=== PATIENT | male | born 1950 | race Two or more races ===

== ENCOUNTER 2025-02-24 05:36 | Inpatient (IN) | payer OTHER, MEDICARE ==
[~2025-02-24] VITALS: Ht 182.9 cm; Wt 112.7 kg
[2025-02-24] VITALS (7 sets, daily range): BP systolic 130–145; BP diastolic 63–73; PULSE 69–87; RESP 16–20; TEMP 97.4–98.1; O2SAT 93–97
--- NOTE | 2025-02-24 06:42 | ED.PDOC ---
GI ASSESSMENT HPI Comments 74 year old male presents to the ED via EMS with a chief complaint of rectal bleeding onset today (02/24/25). Per EMS, patient woke up this morning, went to the restroom, noticed blood in the toilet, went to lay down. Patient began experiencing abdominal pain, called 911. Upon EMS arrival, patient was pale, BS 172, VSS. Patient had a second bowel movement with EMS present, EMS noticed blood with no stool, shortly after patient experienced syncopal episode followed by an episode of nausea/vomiting. He was given Zofran 8 mg IV as well as IVF in route to ED. PMHx HTN, Parkinson's disease, Gout, blood clots. Denies chest pain, shortness of breath, dizziness, headache, diarrhea, dysuria, hematuria, fever, chills. No other symptoms or modifying factors present at this time. Chief Complaint: GI Bleed Time Seen by MD: 06:15 Reviewed Notes: Medications, Allergies Allergies: Coded Allergies: NO KNOWN ALLERGIES (Unverified , 02/24/25) Information Source: Patient, Emergency Med Personnel Mode of Arrival: EMS Timing: Hours Duration: Since onset Prehospital treatment: IVF, Other (Zofran 8 mg IV) Quality: Sharp Stool: Blood Streaked Severity: Moderate Recent: None Recent Hx of: None Pain Location: Diffuse Modifying Factors: Nothing Associated sign and symptoms: Nausea, Vomiting, Abdominal Pain, Blood in Stool, Other (syncope) Past Medical History PAST MEDICAL HISTORY: Gout, HTN Past Medical History (Other): parkinson's disease, blood clots bilateral legs Surgical History: Denies all surgeries Family History Family History: Reviewed,noncontributory to illness, No family hx of Cancer, No family hx of DM, No family hx of Heart janelle, No family hx of HTN, No family hx ofKidney janelle, No family hx of Liver janelle, No family hx of Lung janelle, No family hx of Stroke Social History Smoker: Non-Smoker Alcohol: Occasionally Drugs: Denies Drug Use Lives In: Home Constitutional: denies: chills, diaphoresis, fatigue, fever, malaise, sweats, weakness, others EENTM: denies: blurred vision, double vision, ear bleeding, ear discharge, ear drainage, ear pain, ear ringing, eye pain, eye redness, hearing loss, mouth pain, mouth swelling, nasal discharge, nose bleeding, nose congestion, nose pain, photophobia, tearing, throat pain, throat swelling, voice changes, others Respiratory: denies: cough, hemoptysis, orthopnea, SOB at rest, shortness of breath, SOB with excertion, stridor, wheezing, others Cardiovascular: denies: chest pain, dizzy spells, diaphoresis, Dyspnea on exer tion, edema, irregular heart beat, left arm pain, lightheadedness, palpitations, PND, syncope, others Gastrointestinal: reports: abdominal pain, nausea, rectal bleeding, vomiting; denies: abdomen distended, blood streaked bowels, constipated, diarrhea, dysphagia, difficulty swallowing, hematemesis, melena, poor appetite, poor fluid intake, rectal pain, others Genitourinary: denies: burning, dysuria, flank pain, frequency, hematuria, incontinence, penile discharge, penile sore, pain, testicle pain, testicle swelling, urgency, others Neurological: reports: others (syncope); denies: dizziness, fainting, headache, left sided numbness, left sided weakness, numbness, paresthesia, pre-existing deficit, right sided numbness, right sided weakness, seizure, speech problems, tingling, tremors, weakness Musculoskeletal: denies: back pain, gout, joint pain, joint swelling, muscle pain, muscle stiffness, neck pain, others Integumetry: denies: bruises, change in color, change in hair/nails, dryness, laceration, lesions, lumps, rash, wounds, others Allergic/Immunocompromised: denies: Difficulty Healing, Frequent Infections, Hives, Itching, others Hematologic/Lymphatic: denies: anemia, blood clots, easy bleeding, easy bruising, swollen glands, others Endocrine: denies: excessive hunger, excessive sweating, excessive thirst, excessive urination, flushing, intolerance to cold, intolerance to heat, unexplained weight gain, unexplained weight loss, others Psychiatric: denies: anxiety, bipolar disorder, depression, hopeless, panic disorder, schizophrenia, sleepless, suicidal, others All Other Systems: Reviewed and Negative Physical Exam General Appearance: No Apparent Distress, Normal HEENT: Normal ENT Inspection, Pharynx Normal, TMs Normal Neck: Full Range of Motion, Non-Tender, Normal, Normal Inspection Respiratory: Chest Non-Tender, Lungs Clear, No Accessory Muscle Use, No Respiratory Distress, Normal Breath Sounds Cardiovascular: No Edema, No JVD, No Murmur, No Gallop, Normal Peripheral Pulses, Regular Rate/Rhythm Breast Exam: Deferred Gastrointestinal: No Organomegaly, Non Tender, No Pulsatile Mass, Normal Bowel Sounds, Soft Genitalia: Deferred Pelvic: Deferred Rectal: Deferred Extremities: No calf tenderness, Normal capillary refill, Normal inspection, Normal range of motion, Non-tender, No pedal edema Musculoskeletal : Apperance: Normal Neurologic: Alert, chemical equipment repairer II-XII nml as Tested, No Motor Deficits, Normal Affect, Normal Mood, No Sensory Deficits Cerebellar Function: Normal Reflexes: Normal Skin: Dry, Normal Color, Warm Lymphatic: No Adenopathy Was a procedure done? Was a procedure done?: No GI differential Dx Differential Diagnosis: AAA, Aortic dissection, Bowel Obstruction, Diverticular disease, Esophagitis, Gastritis/PUD, Gastroenteritis, GI hemorrhage, Inflamm atory BD, Ischemic Bowel, Bacterial, Parasitic, Viral, Hypovolemia, Ischemic Bowel, Stress Ulcer, Other (anemia) X-Ray, Labs, Meds, VS Vital Signs Date Time Temp Pulse Resp B/P (MAP) Pulse Ox O2 Delivery O2 Flow Rate FiO2 02/24/25 08:00 97.8 77 16 133/62 (85) 93 97.8 02/24/25 08:00 77 16 93 Room Air* 0 21 02/24/25 06:48 98.1 73 20 139/54 (82) 97 98.1 02/24/25 06:48 69 20 97 Room Air* 0 21 02/24/25 05:39 74 02/24/25 05:36 97.9 72 16 104/60 (75) 96 97.9 Lab Test 02/24/25 09:50 02/24/25 09:49 02/24/25 07:48 02/24/25 06:30 Range/Units Stool Occult Blood Sample #3 Pending Lactic Acid Level Pending Troponin I High Sensitivity 6 6 </=54 ng/L White Blood Count 17.6 H 4.4-10.8 10^3/uL Red Blood Count 5.29 4.5-5.90 10^6/uL Hemoglobin 15.6 13.5-17.5 g/dL Hematocrit 47.6 41.0-53.0 % Mean Corpuscular Volume 90.1 80.0-100.0 fL Mean Corpuscular Hemoglobin 29.5 28.0-32.0 pg Mean Corpuscular Hemoglobin Concent 32.7 32.0-36.0 g/dL Red Cell Distribution Width 17.2 H 11.8-14.3 % Platelet Count 259 140-450 10^3/uL Mean Platelet Volume 8.8 6.9-10.8 fL Neutrophils (%) (Auto) 86.6 H 37.0-80.0 % Lymphocytes (%) (Auto) 6.8 L 10.0-50.0 % Monocytes (%) (Auto) 6.0 0.0-12.0 % Eosinophils (%) (Auto) 0.2 0.0-7.0 % Basophils (%) (Auto) 0.4 0.0-2.0 % Neutrophils # (Auto) 15.2 H 1.6-8.6 10 ^3/uL Lymphocytes # (Auto) 1.2 0.4-5.4 10 ^3/uL Monocytes # (Auto) 1.1 0-1.3 10 ^3/uL Eosinophils # (Auto) 0 0-0.8 10 ^3/uL Basophils # (Auto) 0.1 0-0.2 10 ^3/uL Nucleated Red Blood Cells 0.3 % Prothrombin Time 23.2 H 9.3-11.8 sec Prothrombin Time INR 2.39 H 0.9-1.15 Activated Partial Thromboplast Time 37.7 H 24.5-34.5 SEC Sodium Level 138 136-145 mmol/L Potassium Level 5.5 H 3.5-5.1 mmol/L Chloride Level 108 H 98-107 mmol/L Carbon Dioxide Level 21 20-31 mmol/L Anion Gap 9 5-15 Blood Urea Nitrogen 23 9-23 mg/dL Creatinine 1.64 H 0.700-1.30 mg/dL Glomerular Filtration Rate Calc 43 >90 mL/min BUN/Creatinine Ratio 14.0 10.0-20.0 Serum Glucose 173 H 74-106 mg/dL Hemoglobin A1c Pending Calcium Level 9.2 8.7-10.4 mg/dL Total Bilirubin 0.8 0.2-1.0 mg/dL Aspartate Amino Transferase (AST) 97 H 13-40 U/L Alanine Aminotransferase (ALT) 45 H 7-40 U/L Alkaline Phosphatase 96 46-116 U/L Total Protein 7.6 5.7-8.2 g/dL Albumin 4.2 3.2-4.8 g/dL Triglycerides Level Pending Cholesterol Level Pending LDL Cholesterol Pending HDL Cholesterol Pending Vitamin D 25-Hydroxy 50.3 30.0-100 ng/mL Folic Acid 9.08 >5.38 ng/mL Thyroid Stimulating Hormone (TSH) 3.68 0.55-4.78 uIU/mL [place] [id number] Ph: [phone] DIAGNOSTIC IMAGING Diagnostic Imaging Report : [id number] Signed PATIENT: EMIR BENDERACCT: [id number] UNIT: [id number] : 1950 LOC: ER ROOM / BED: / AGE / SEX: 74 / M ADM STATUS: REG ER SERVICE 8 ORDERING PHYSICIAN: LOULOU ADAMES MD PROCEDURE(s): ABPL - CT AB PEL WO CON-NO ORAL OR IV REASON: gib ORDER NUMBER(s): [id number], ACCESSION NUMBER(s): [id number] Exam: CT CT AB PEL WO CON-NO ORAL OR IV History: gib Comparison Study: None Technique: Multidetector spiral CT of the abdomen and pelvis was performed from lung bases to pubic symphysis. Imaging was performed without intravenous contrast. Coronal and sagittal multiplanar reformats were obtained from the axial data set by the technologist. Radiation Dose : 1. Abdomen/Pelvis: CTDIvol 24.9 mGy, DLP 1362.2 mGy*cm. Findings: Evaluation of vasculature and solid organs is limited due to lack of intravenous contrast use. Lung Bases: Right lower lobe atelectasis. Visualized portions of the heart and pericardium are unremarkable. Liver: The liver is enlarged measuring 21.4 cm in length. No focal lesions. Diffusely hypoattenuating liver parenchyma consistent with hepatic steatosis. Gallbladder and Biliary Tree: Gallstones. No intrahepatic or extrahepatic biliary ductal dilatation. Spleen: Unremarkable Pancreas: The pancreas is grossly unremarkable. Adrenal Glands: Unremarkable Kidneys: No intrarenal calculi or hydronephrosis. 10 mm right cortical renal cyst. GI tract: The stomach is grossly normal in appearance. Abnormal small bowel wall thickening of jejunal loops in the left hemiabdomen, with engorgement of the mesenteric vascular. No bowel obstruction. Colonic diverticulosis without acute diverticulitis. Normal appendix. Peritoneum/mesentery/retroperitoneum. No evidence of free intraperitoneal air. No free fluid in the abdomen or pelvis. Lymph nodes: No evidence of suspicious lymphadenopathy. Abdominal Wall: Unremarkable. Vasculature: The visualized abdominal aorta is normal in size and caliber. Evaluation of abdominal and pelvic vessels is limited due to lack of intravenous contrast. Urinary Bladder: Grossly unremarkable for degree of distention. Pelvic Organs: Unremarkable Musculoskeletal: No acute fracture or dislocation. Old left inferior pubic ramus fracture. Old right inferior pubic ramus fracture. Right hip prosthesis. Soft tissues: Bilateral fat containing inguinal hernias. IMPRESSION: 1. Abnormal small bowel wall thickening with engorgement of the mesenteric vasculature suggestive of severe enteritis. This may be infectious, inflammatory or vascular in etiology. No bowel obstruction. No free fluid in the abdomen or pelvis. 2. Gallstones. 3. Hepatomegaly and hepatic steatosis. 4. Colonic diverticulosis without acute diverticulitis. ATED BY: ANABELLE GREENFIELD MD DICTATED DATE/TIME: 02/24/25704 SIGNED BY: ANABELLE GREENFIELD MD SIGNED DATE/TIME: 02/24/25704 CC: Time of 1ST Reevaluation: 06:45 Reevaluation 1ST: Unchanged Patient Education/Counseling: Diagnosis, Treatment, Prognosis, Need For Follow Up Family Education/Counseling: Diagnosis, Treatment, Prognosis, Need For Follow Up, No Family Present Additional Information The following tests were ordered, and results were reviewed by me: EKG -x3, PTPTT, TYPE AND SCREEN, BNP, CBC, CMP, LA W/ REFLEX, UA, TROP -x3, CT AB PEL WO CON Additional Information was gathered from interviewing the following independent historians: EMS I reviewed and agreed with the following test results read by other providers: C T AB PEL WO CON I discussed treatment and results with medical personnel and: patient Comprehensive systems review obtained and negative except for what is stated in the HPI. pt reports that he is also on steroid and NSAID for his gout. pt may have gas tritis in addition to diverticulosis and enteritis as the source of bleed. pt has leukocytosis, but no signs of diverticulitis nor any source of infection, other the the enteritis. i will withhold antibiotic for now, as the leukocytosis may be secondary to demargination and should be monitored. pt also had 2 episodes of GIB with one episode of syncope, witnessed by EMT. pt is currently not considered stable and will need to be admitted for further evaluation and treatments. i communicated with [place] and obtained approval to admit pt here. [facility], transfer center coordinator agree with admitting pt here Sepsis Sepsis Reasesment Focused Exam Orders: Laboratory Tests 02/24/25 09:49: Departure 1 Departure Time of Disposition: 08:54 Impression: Primary Impression: GI bleed Qualified Codes: K92.2 - Gastrointestinal hemorrhage, unspecified Additional Impressions: Diverticulosis Enteritis Bleeding on Coumadin Syncope Qualified Codes: R55 - Syncope and collapse Disposition: ADMITTED INPATIENT Admit to: Tele Condition: Serious Discharged With: Self, Relative Critical Care Note Critical Care Time?: Yes (55 min-critical care time only) Critical care comment: Due to concerns for patients condition deteriorating, the care required my highest level of attention and readiness to intervene. I assessed the patient, reviewed the medical records, ordered the appropriate tests and treatments, then reassessed for results and responsiveness. I communicated with medical personnel and consultants and formulated a plan of care. Total critical care time excludes any procedures Stability Stability form required: No I personally scribed for LOULOU ADAMES MD ([email or web address]) on 02/24/25 at 06:42. Electronically submitted by Yeimi Lazar ([email or web address]). I personally scribed for LOULOU ADAMES MD ([email or web address]) on 02/24/25 at 06:53. Electronically submitted by Yeimi Lazar ([email or web address]). I personally scribed for LOULOU ADAMES MD ([email or web address]) on 02/24/25 at 07:33. Electronically submitted by Yeimi Lazar ([email or web address]). LOULOU ADAMES MD February 24, 2025 06:42
--- NOTE | 2025-02-24 07:07 | DVH ---
Exam: CT CT AB PEL WO CON-NO ORAL OR IV History: gib Comparison Study: None Technique: Multidetector spiral CT of the abdomen and pelvis was performed from lung bases to pubic s ymphysis. Imaging was performed without intravenous contrast. Coronal and sagittal multiplanar reform ats were obtained from the axial data set by the technologist. Radiation Dose : 1. Abdomen/Pelvis: CTDIvol 24.9 mGy, DLP 1362.2 mGy*cm. Findings: Evaluation of vasculature and solid organs is limited due to lack of intravenous contrast use. Lung Bases: Right lower lobe atelectasis. Visualized portions of the heart and pericardium are unrema rkable. Liver: The liver is enlarged measuring 21.4 cm in length. No focal lesions. Diffusely hypoattenuatin g liver parenchyma consistent with hepatic steatosis. Gallbladder and Biliary Tree: Gallstones. No intrahepatic or extrahepatic biliary ductal dilatation. Spleen: Unremarkable Pancreas: The pancreas is grossly unremarkable. Adrenal Glands: Unremarkable Kidneys: No intrarenal calculi or hydronephrosis. 10 mm right cortical renal cyst. GI tract: The stomach is grossly normal in appearance. Abnormal small bowel wall thickening of jejuna l loops in the left hemiabdomen, with engorgement of the mesenteric vascular. No bowel obstruction. Colonic diverticulosis without acute diverticulitis. Normal appendix. Peritoneum/mesentery/retroperitoneum. No evidence of free intraperitoneal air. No free fluid in the a bdomen or pelvis. Lymph nodes: No evidence of suspicious lymphadenopathy. Abdominal Wall: Unremarkable. Vasculature: The visualized abdominal aorta is normal in size and caliber. Evaluation of abdominal a nd pelvic vessels is limited due to lack of intravenous contrast. Urinary Bladder: Grossly unremarkable for degree of distention. Pelvic Organs: Unremarkable Musculoskeletal: No acute fracture or dislocation. Old left inferior pubic ramus fracture. Old right inferior pubic ramus fracture. Right hip prosthesis. Soft tissues: Bilateral fat containing inguinal hernias. IMPRESSION: 1. Abnormal small bowel wall thickening with engorgement of the mesenteric vasculature suggestive of severe enteritis. This may be infectious, inflammatory or vascular in etiology. No bowel obstruction . No free fluid in the abdomen or pelvis. 2. Gallstones. 3. Hepatomegaly and hepatic steatosis. 4. Colonic diverticulosis without acute diverticulitis.
[2025-02-24 07:08] LABS: Alkaline Phosphatase 96 U/L (46-116); Anion Gap 9 (5-15); Calcium 9.2 mg/dL (8.7-10.4); Carbon Dioxide 21 mmol/L (20-31); Sodium 138 mmol/L (136-145); Total Protein 7.6 g/dL (5.7-8.2)
[2025-02-24 07:09] LABS: Albumin 4.2 g/dL (3.2-4.8); Bilirubin, Total 0.8 mg/dL (0.2-1.0)
[2025-02-24 07:29] LABS: INR 2.39 (0.9-1.15); Partial Thromboplastin Time 37.7 SEC (24.5-34.5); Prothrombin Time 23.2 sec (9.3-11.8)
[2025-02-24 07:31] LABS: Basophils # (auto) 0.1 10 ^3/uL (0-0.2); Basophils % (auto) 0.4 % (0.0-2.0); Eosinophils # (auto) 0 10 ^3/uL (0-0.8); Eosinophils % (auto) 0.2 % (0.0-7.0); Hematocrit 47.6 % (41.0-53.0); Hemoglobin 15.6 g/dL (13.5-17.5); Lymphocytes # (auto) 1.2 10 ^3/uL (0.4-5.4); Lymphocytes % (auto) 6.8 % (10.0-50.0); Mean Corpuscular Hemoglobin 29.5 pg (28.0-32.0); Mean Corpuscular Hgb Conc. 32.7 g/dL (32.0-36.0); Mean Corpuscular Volume 90.1 fL (80.0-100.0); Monocytes # (auto) 1.1 10 ^3/uL (0-1.3); Neutrophils # (auto) 15.2 10 ^3/uL (1.6-8.6); Neutrophils % (auto) 86.6 % (37.0-80.0); Nucleated Red Blood Cells % 0.3 %; Platelet Count (auto) 259 10^3/uL (140-450); Red Blood Cells 5.29 10^6/uL (4.5-5.90); Red Cell Distribution Width 17.2 % (11.8-14.3); White Blood Cell 17.6 10^3/uL (4.4-10.8)
[2025-02-24 07:41] LABS: Alanine Aminotransferase 45 U/L (7-40); Aspartate Aminotransferase 97 U/L (13-40); Blood Urea Nitrogen 23 mg/dL (9-23); Chloride 108 mmol/L (98-107); Glucose 173 mg/dL (74-106)
[2025-02-24 07:42] LABS: Potassium 5.5 mmol/L (3.5-5.1)
[2025-02-24] MEDS ORDERED: ACETAMINOPHEN 325 MG TAB PO PRN (10:00)
[2025-02-24] MEDS ORDERED: ONDANSETRON HCL 4 MG/2 ML VIAL IV PRN (10:00)
--- NOTE | 2025-02-24 10:15 | DVHHPRES ---
History of Present Illness Resident Creating Document: YAO MCGEE RESIDENT History of Present Illness This is a 74-year-old male with past medical history of hypertension, type 2 diabetes mellitus, gout, Parkinson, DVT x3, CKD who presented to the ED via EMS with chief complaint of rectal bleeding. Per EMS patient into the restroom this morning experiencing abdominal pain and was found pale in the restroom and there was blood in the toilet with no stool. Patient also had a syncopal event with an episode of nausea and vomiting at the scene. When asked further details to the patient, he reports that he started urinating blood since yesterday and this morning he went to the toilet urinating again and was seen dark reddish urine color. Patient thinks that he was bleeding from the pineal area and not from the rectal area. On my examination, I perform rectal exam with the nurse at bedside and send specimen for stool occult blood testing to clarify the etiology. Patient is currently complaining of mild periumbilical abdominal tenderness but otherwise physical exam is unremarkable. CT of the abdomen was performed showing severe enteritis with gallstones and hepatomegaly with hepatic steatosis. We started the patient on IV metronidazole and ceftriaxone as well as fluid resuscitation with 1 L of normal saline at this time. CBC showed a WBC of 17.6, hemoglobin of 15.6, potassium was 5.5, creatinine 1.64 and BUN 23. Mid the patient for further assessment and management. Cardiovascular: HTN Renal/: Chronic renal insuff Endocrine: Diabetes Past Surgical History: Total hip replacement Family History: None Smoke: No ALCOHOL: none Drugs: None Lives: with Family Domestic Violence: Neg Review of Systems Constitutional: No: Fever, Chills, Sweats, Weakness, Malaise, Other Eyes: No: Pain, Vision change, Conjunctivae inflammation, Eyelid inflammation, Other, Redness ENT: No: Ear pain, Ear discharge, Nose pain, Nose discharge, Nose congestion, Mouth pain, Mouth swelling, Throat pain, Throat swelling, Other Respiratory: No: Cough, Dry, Shortness of breath, SOB with excertion, Wheezing, Hemoptysis, Pleuritic Pain, Sputum, Wheezing, Other Cardiovascular: No: Chest Pain, Palpitations, Orthopnea, Paroxysmal Noc. Dyspnea, Edema, Lt Headedness, Other Gastrointestinal: Nausea, Vomiting, Abdominal Pain; No: Diarrhea, Constipation, Melena, Hematochezia, Other Genitourinary: No Dysuria, No Frequency, No Incontinence; Hematuria; No Retention, No Other Musculoskeletal: No: other, neck pain, shoulder pain, arm pain, back pain, hand pain, leg pain, foot pain Skin: No: Rash, Lesions, Jaundice, Bruising, Other Neurological: No: Weakness, Numbness, Incoordination, Change in speech, Confusion, Seizures, Other Allergies: Coded Allergies: NO KNOWN ALLERGIES (Unverified , 02/24/25) Exam Vital Signs Vital Signs Date Time Temp Pulse Resp B/P (MAP) Pulse Ox O2 Delivery O2 Flow Rate FiO2 02/24/25 08:00 97.8 77 16 133/62 (85) 93 97.8 02/24/25 08:00 Room Air* 0 21 General Appearance: Alert, Oriented X3, Cooperative, No acute distress HEENT: Atraumatic, PERRLA, EOMI, Mucous membr. moist/pink Respiratory: Clear to auscultation, Normal air movement Cardiovascular: Regular rate, Normal S1, Normal S2, No murmurs, Gallops Abdominal: Normal bowel sounds, Soft, No tenderness, No hepatospenomegaly, No masses Extremities: No clubbing, No cyanosis, No edema, Normal pulses, No tenderness/ swelling Skin: No rashes, No breakdown, No significant lesion Neuro: Normal gait, Normal speech, Strength at 5/5 X4 ext, Normal tone, Sensation intact, Cranial nerves 3-12 NL, Reflexes 2+ Psych/Mental Status: Mental status NL, Mood NL Labs/Xrays Labs Test 02/24/25 09:49 02/24/25 07:48 02/24/25 06:30 Range/Units Troponin I High Sensitivity 6 </=54 ng/L White Blood Count 17.6 H 4.4-10.8 10^3/uL Red Blood Count 5.29 4.5-5.90 10^6/uL Hemoglobin 15.6 13.5-17.5 g/dL Hematocrit 47.6 41.0-53.0 % Mean Corpuscular Volume 90.1 80.0-100.0 fL Mean Corpuscular Hemoglobin 29.5 28.0-32.0 pg Mean Corpuscular Hemoglobin Concent 32.7 32.0-36.0 g/dL Red Cell Distribution Width 17.2 H 11.8-14.3 % Platelet Count 259 140-450 10^3/uL Mean Platelet Volume 8.8 6.9-10.8 fL Neutrophils (%) (Auto) 86.6 H 37.0-80.0 % Lymphocytes (%) (Auto) 6.8 L 10.0-50.0 % Monocytes (%) (Auto) 6.0 0.0-12.0 % Eosinophils (%) (Auto) 0.2 0.0-7.0 % Basophils (%) (Auto) 0.4 0.0-2.0 % Neutrophils # (Auto) 15.2 H 1.6-8.6 10 ^3/uL Lymphocytes # (Auto) 1.2 0.4-5.4 10 ^3/uL Monocytes # (Auto) 1.1 0-1.3 10 ^3/uL Eosinophils # (Auto) 0 0-0.8 10 ^3/uL Basophils # (Auto) 0.1 0-0.2 10 ^3/uL Nucleated Red Blood Cells 0.3 % Prothrombin Time 23.2 H 9.3-11.8 sec Prothrombin Time INR 2.39 H 0.9-1.15 Activated Partial Thromboplast Time 37.7 H 24.5-34.5 SEC Sodium Level 138 136-145 mmol/L Potassium Level 5.5 H 3.5-5.1 mmol/L Chloride Level 108 H 98-107 mmol/L Carbon Dioxide Level 21 20-31 mmol/L Anion Gap 9 5-15 Blood Urea Nitrogen 23 9-23 mg/dL Creatinine 1.64 H 0.700-1.30 mg/dL Glomerular Filtration Rate Calc 43 >90 mL/min BUN/Creatinine Ratio 14.0 10.0-20.0 Serum Glucose 173 H 74-106 mg/dL Calcium Level 9.2 8.7-10.4 mg/dL Total Bilirubin 0.8 0.2-1.0 mg/dL Aspartate Amino Transferase (AST) 97 H 13-40 U/L Alanine Aminotransferase (ALT) 45 H 7-40 U/L Alkaline Phosphatase 96 46-116 U/L Total Protein 7.6 5.7-8.2 g/dL Albumin 4.2 3.2-4.8 g/dL Assessment/Plan Assessment/Plan Assessment/plan Acute abdominal tenderness likely due to severe enteritis associated with possible GI bleed Acute hematuria, patient is currently taking warfarin due to previous DVTs Primary hypertension Type 2 diabetes CKD Previous history of DVTs Parkinson disease Gout Plan -rectal exam performed and specimen sent for stool occult blood test -start IV metronidazole -start IV ceftriaxone -IV fluid resuscitation 1 L of normal saline -monitor hemoglobin and hematocrit closely -monitor blood glucose and start sliding scale insulin -monitor kidney function -Consult GI and urology Goals of care discussed with the patient at bedside for > 30min, FULL CODE Plan discussed with Dr reyes Plan discussed with: Patient My Orders Orders - YAO MCGEE RESIDENT Procedure Category Date Status Time Metronidazole PHA 02/24/25 In Process 500mg/100ml (Flagyl 09:45 Ceftriaxone 1gm/50ml PHA 02/24/25 In Process D5w (Rocephin) 09:45 Lactic Acid W/ Reflex LAB 02/24/25 Logged Order 09:35 Sodium Chloride 0.9% PHA 02/24/25 In Process 09:45 Urinalysis LAB 02/24/25 Logged 09:36 Drug Screen LAB 02/24/25 Logged 09:36 Hemoglobin & LAB 02/24/25 Logged Hematocrit 09:36 Vitamin D, 25-Hydroxy LAB 02/24/25 In Process 09:36 Folate (Folic Acid) LAB 02/24/25 In Process 09:36 Thyroid Stimulating LAB 02/24/25 In Process Hormone 09:36 Stool Occult Blood LAB 02/24/25 Logged 09:58 Admit ADMIT 02/24/25 Transmitted 09:59 Code Status CODE 02/24/25 Transmitted 09:[address] [facility] 02/24/25 Transmitted 09:59 Review Orders With BEHZAD 02/24/25 Transmitted Adm. 09:59 Encourage Activity As BEHZAD 02/24/25 Transmitted Tolerate 09:59 Npo (Nothing By DIET 02/24/25 Transmitted Mouth) Diet Lunch Acetaminophen Tablet PHA 02/24/25 Logged (Tylenol Tablet) 10:00 Notify Of Changes BEHZAD 02/24/25 Transmitted From Base 09:59 Advance Directive BEHZAD 02/24/25 Transmitted 09:59 Urinalysis LAB 02/24/25 Transmitted 09:59 Lipid Panel LAB 02/24/25 Transmitted 09:59 Urine Bacterial GRACIELA 02/24/25 Transmitted Culture 09:59 Patient Condition ORDERS 02/24/25 Transmitted 09:59 Allergies BEHZAD 02/24/25 Transmitted 09:59 Ondansetron Hcl PHA 02/24/25 Transmitted (Zofran) 10:00 Hemoglobin A1c LAB 02/24/25 Transmitted 09:59 Date of Service: February 24, 2025 Billing Provider: CHARLIE REYES MD Common Visit Codes: [id number] INP/OBS CARE (HIGH) Secondary Visit Codes: [id number] CARE PLAN 30 MINUTES YAO MCGEE RESIDENT February 24, 2025 10:15 CHARLIE REYES MD February 24, 2025 17:50
[2025-02-24 10:31] LABS: Triglycerides 115 mg/dL (< 150)
[2025-02-24 10:32] LABS: LDL Cholesterol 57 mg/dL (< 100)
[2025-02-24 10:33] LABS: Cholesterol 106 mg/dL (< 200)
[2025-02-24 10:34] LABS: HDL Cholesterol 31 mg/dL (40-59)
[2025-02-24] MEDS: PANTOPRAZOLE 40 MG/10 ML VIAL INJ IV ONE (10:44)
[2025-02-24] MEDS: SODIUM CHLORIDE 0.9% 1,000 ML IV ONE (10:44)
[2025-02-24] MEDS: cefTRIAXone 1GM/50ML D5W 50 ML IV ONE (10:44)
[2025-02-24 10:51] LABS: Hematocrit 46.9 % (41.0-53.0); Hemoglobin 15.6 g/dL (13.5-17.5)
[2025-02-24 11:05] LABS: Lactic Acid w/Reflex 3.1 mmol/L (0.4-2.0)
--- NOTE | 2025-02-24 11:30 | DVHINCON2 ---
Date of service: February 24, [address] Ruelas Reason for Consultation Hematuria History of Present Illness 74-year-old male with lower urinary tract symptoms likely due to BPH and takes Coumadin for DVT is seen in the emergency room for acute GI bleed and episodes o f gross hematuria. His urine is currently clear. His creatinine is 1.64. Patient reports occasional hesitancy of urination, nocturia and slow stream times years. He has not taken any prostate medications. 74 year old male presents to the ED via EMS with a chief complaint of rectal bleeding onset today (02/24/25). Per EMS, patient woke up this morning, went to the restroom, noticed blood in the toilet, went to lay down. Patient began experiencing abdominal pain, called 911. Upon EMS arrival, patient was pale, BS 172, VSS. Patient had a second bowel movement with EMS present, EMS noticed blood with no stool, shortly after patient experienced syncopal episode followed by an episode of nausea/vomiting. He was given Zofran 8 mg IV as well as IVF in route to ED. PMHx HTN, Parkinson's disease, Gout, blood clots. Denies chest pain, shortness of breath, dizziness, headache, diarrhea, dysuria, hematuria, fever, chills. No other symptoms or modifying factors present at this time. Chief Complaint: GI Bleed Reviewed Notes: Medications, Allergies Allergies: Coded Allergies: NO KNOWN ALLERGIES (Unverified , 02/24/25) Information Source: Patient, Emergency Med Personnel Mode of Arrival: EMS Timing: Hours Duration: Since onset Prehospital treatment: IVF, Other (Zofran 8 mg IV) Quality: Sharp Stool: Blood Streaked Severity: Moderate Recent: None Recent Hx of: None Pain Location: Diffuse Modifying Factors: Nothing Associated sign and symptoms: Nausea, Vomiting, Abdominal Pain, Blood in Stool, Other (syncope) Past Medical History Gout, HTN Past Medical History (Other): parkinson's disease, blood clots bilateral legs Allergies: Coded Allergies: NO KNOWN ALLERGIES (Unverified , 02/24/25) Current Medications Current Medications Medications (Trade) Dose Ordered Sig/Reese Route PRN Reason Start Time Stop Time Status Last Admin Acetaminophen (Tylenol Tablet) 650 mg Q6HP PRN PO PAIN SCALE 1-3 OR TEMP>100.4 02/24/25 10:00 UNV Ondansetron HCl (Zofran) 4 mg Q4HP PRN IV NAUSEA / VOMITING 02/24/25 10:00 UNV Pantoprazole Sodium (Protonix) 40 mg BID IV 02/24/25 22:00 UNV Review of Systems Constitutional: denies: chills, diaphoresis, fatigue, fever, malaise, sweats, weakness, others EENTM: denies: blurred vision, double vision, ear bleeding, ear discharge, ear drainage, ear pain, ear ringing, eye pain, eye redness, hearing loss, mouth pain, mouth swelling, nasal discharge, nose bleeding, nose congestion, nose pain, photophobia, tearing, throat pain, throat swelling, voice changes, others Respiratory: denies: cough, hemoptysis, orthopnea, SOB at rest, shortness of breath, SOB with excertion, stridor, wheezing, others Cardiovascular: denies: chest pain, dizzy spells, diaphoresis, Dyspnea on exertion, edema, irregular heart beat, left arm pain, lightheadedness, palpitations, PND, syncope, others Gastrointestinal: reports: abdominal pain, nausea, rectal bleeding, vomiting; denies: abdomen distended, blood streaked bowels, constipated, diarrhea, dysphag ia, difficulty swallowing, hematemesis, melena, poor appetite, poor fluid intake, rectal pain, others Genitourinary: denies: burning, dysuria, flank pain, frequency, hematuria, incontinence, penile discharge, penile sore, pain, testicle pain, testicle swelling, urgency, others Neurological: reports: others (syncope); denies: dizziness, fainting, headache, left sided numbness, left sided weakness, numbness, paresthesia, pre-existing deficit, right sided numbness, right sided weakness, seizure, speech problems, tingling, tremors, weakness Musculoskeletal: denies: back pain, gout, joint pain, joint swelling, muscle pain, muscle stiffness, neck pain, others Integumetry: denies: bruises, change in color, change in hair/nails, dryness, laceration, lesions, lumps, rash, wounds, others Allergic/Immunocompromised: denies: Difficulty Healing, Frequent Infections, Hives, Itching, others Hematologic/Lymphatic: denies: anemia, blood clots, easy bleeding, easy bruising, swollen glands, others Endocrine: denies: excessive hunger, excessive sweating, excessive thirst, excessive urination, flushing, intolerance to cold, intolerance to heat, unexplained weight gain, unexplained weight loss, others Psychiatric: denies: anxiety, bipolar disorder, depression, hopeless, panic disorder, schizophrenia, sleepless, suicidal, others All Other Systems: Reviewed and Negative Vital Signs Vital Signs Date Time Temp Pulse Resp B/P (MAP) Pulse Ox O2 Delivery O2 Flow Rate FiO2 02/24/25 08:00 97.8 77 16 133/62 (85) 93 97.8 02/24/25 08:00 Room Air* 0 21 Physical Exam General Appearance: No Apparent Distress, Normal HEENT: Normal ENT Inspection, Pharynx Normal, TMs Normal Neck: Full Range of Motion, Non-Tender, Normal, Normal Inspection Respiratory: Chest Non-Tender, Lungs Clear, No Accessory Muscle Use, No Respiratory Distress, Normal Breath Sounds Cardiovascular: No Edema, No JVD, No Murmur, No Gallop, Normal Peripheral Pulses, Regular Rate/Rhythm Breast Exam: Deferred Gastrointestinal: No Organomegaly, Non Tender, No Pulsatile Mass, Normal Bowel Sounds, Soft Genitalia: Deferred Pelvic: Deferred Rectal: Deferred Extremities: No calf tenderness, Normal capillary refill, Normal inspection, Normal range of motion, Non-tender, No pedal edema Musculoskeletal : Apperance: Normal Neurologic: Alert, cloud engineer II-XII nml as Tested, No Motor Deficits, Normal Affect, Normal Mood, No Sensory Deficits Cerebellar Function: Normal Reflexes: Normal Skin: Dry, Normal Color, Warm Lymphatic: No Adenopathy Labs/Diagnostic Data Labs Test 02/24/25 10:28 02/24/25 09:50 02/24/25 06:30 Range/Units Hemoglobin 15.6 13.5-17.5 g/dL Hematocrit 46.9 41.0-53.0 % Lactic Acid Level 3.1 *H 0.4-2.0 mmol/L Troponin I High Sensitivity 5 </=54 ng/L Stool Occult Blood Positive Negative Stool Occult Blood Sample #3 Negative White Blood Count 17.6 H 4.4-10.8 10^3/uL Red Blood Count 5.29 4.5-5.90 10^6/uL Mean Corpuscular Volume 90.1 80.0-100.0 fL Mean Corpuscular Hemoglobin 29.5 28.0-32.0 pg Mean Corpuscular Hemoglobin Concent 32.7 32.0-36.0 g/dL Red Cell Distribution Width 17.2 H 11.8-14.3 % Platelet Count 259 140-450 10^3/uL Mean Platelet Volume 8.8 6.9-10.8 fL Neutrophils (%) (Auto) 86.6 H 37.0-80.0 % Lymphocytes (%) (Auto) 6.8 L 10.0-50.0 % Monocytes (%) (Auto) 6.0 0.0-12.0 % Eosinophils (%) (Auto) 0.2 0.0-7.0 % Basophils (%) (Auto) 0.4 0.0-2.0 % Neutrophils # (Auto) 15.2 H 1.6-8.6 10 ^3/uL Lymphocytes # (Auto) 1.2 0.4-5.4 10 ^3/uL Monocytes # (Auto) 1.1 0-1.3 10 ^3/uL Eosinophils # (Auto) 0 0-0.8 10 ^3/uL Basophils # (Auto) 0.1 0-0.2 10 ^3/uL Nucleated Red Blood Cells 0.3 % Prothrombin Time 23.2 H 9.3-11.8 sec Prothrombin Time INR 2.39 H 0.9-1.15 Activated Partial Thromboplast Time 37.7 H 24.5-34.5 SEC Sodium Level 138 136-145 mmol/L Potassium Level 5.5 H 3.5-5.1 mmol/L Chloride Level 108 H 98-107 mmol/L Carbon Dioxide Level 21 20-31 mmol/L Anion Gap 9 5-15 Blood Urea Nitrogen 23 9-23 mg/dL Creatinine 1.64 H 0.700-1.30 mg/dL Glomerular Filtration Rate Calc 43 >90 mL/min BUN/Creatinine Ratio 14.0 10.0-20.0 Serum Glucose 173 H 74-106 mg/dL Hemoglobin A1c 6.1 H <5.7 % A1C Calcium Level 9.2 8.7-10.4 mg/dL Total Bilirubin 0.8 0.2-1.0 mg/dL Aspartate Amino Transferase (AST) 97 H 13-40 U/L Alanine Aminotransferase (ALT) 45 H 7-40 U/L Alkaline Phosphatase 96 46-116 U/L Total Protein 7.6 5.7-8.2 g/dL Albumin 4.2 3.2-4.8 g/dL Triglycerides Level 115 < 150 mg/dL Cholesterol Level 106 < 200 mg/dL LDL Cholesterol 57 < 100 mg/dL HDL Cholesterol 31 L 40-59 mg/dL Vitamin D 25-Hydroxy 50.3 30.0-100 ng/mL Folic Acid 9.08 >5.38 ng/mL Thyroid Stimulating Hormone (TSH) 3.68 0.55-4.78 uIU/mL PATIENT: CATHY BENDERT: [id number] UNIT: [id number] : 1950 LOC: ER ROOM / BED: / AGE / SEX: 74 / M ADM STATUS: REG ER SERVICE ORDERING PHYSICIAN: LOULOU ADAMES MD PROCEDURE(s): ABPL - CT AB PEL WO CON-NO ORAL OR IV REASON: gib ORDER NUMBER(s): [id number], ACCESSION NUMBER(s): [id number] Exam: CT CT AB PEL WO CON-NO ORAL OR IV History: gib Comparison Study: None Technique: Multidetector spiral CT of the abdomen and pelvis was performed from lung bases to pubic symphysis. Imaging was performed without intravenous contrast. Coronal and sagittal multiplanar reformats were obtained from the axial data set by the technologist. Radiation Dose : 1. Abdomen/Pelvis: CTDIvol 24.9 mGy, DLP 1362.2 mGy*cm. Findings: Evaluation of vasculature and solid organs is limited due to lack of intravenous contrast use. Lung Bases: Right lower lobe atelectasis. Visualized portions of the heart and pericardium are unremarkable. Liver: The liver is enlarged measuring 21.4 cm in length. No focal lesions. Diffusely hypoattenuating liver parenchyma consistent with hepatic steatosis. Gallbladder and Biliary Tree: Gallstones. No intrahepatic or extrahepatic biliary ductal dilatation. Spleen: Unremarkable Pancreas: The pancreas is grossly unremarkable. Adrenal Glands: Unremarkable Kidneys: No intrarenal calculi or hydronephrosis. 10 mm right cortical renal cyst. GI tract: The stomach is grossly normal in appearance. Abnormal small bowel wall thickening of jejunal loops in the left hemiabdomen, with engorgement of the mesenteric vascular. No bowel obstruction. Colonic diverticulosis without acute diverticulitis. Normal appendix. Peritoneum/mesentery/retroperitoneum. No evidence of free intraperitoneal air. No free fluid in the abdomen or pelvis. Lymph nodes: No evidence of suspicious lymphadenopathy. Abdominal Wall: Unremarkable. Vasculature: The visualized abdominal aorta is normal in size and caliber. Evaluation of abdominal and pelvic vessels is limited due to lack of intravenous contrast. Urinary Bladder: Grossly unremarkable for degree of distention. Pelvic Organs: Unremarkable Musculoskeletal: No acute fracture or dislocation. Old left inferior pubic ramus fracture. Old right inferior pubic ramus fracture. Right hip prosthesis. Soft tissues: Bilateral fat containing inguinal hernias. IMPRESSION: 1. Abnormal small bowel wall thickening with engorgement of the mesenteric vasculature suggestive of severe enteritis. This may be infectious, inflammatory or vascular in etiology. No bowel obstruction. No free fluid in the abdomen or pelvis. 2. Gallstones. 3. Hepatomegaly and hepatic steatosis. 4. Colonic diverticulosis without acute diverticulitis. ATED BY: ANABELLE GREENFIELD MD DICTATED DATE/TIME: 02/24/25704 SIGNED BY: ANABELLE GREENFIELD MD SIGNED DATE/TIME: 02/24/25704 CC: Assessment BPH with lower urinary tract symptoms Hematuria Plan/Recommendation PSA level Outpatient cystoscopy to be arranged Plan discussed with: Patient, Spouse HELENA MESSER MD February 24, 2025 11:29
[2025-02-24] MEDS: metroNIDAZOLE 500MG/100ML 100 ML IV ONE (11:33)
[2025-02-24 11:59] LABS: Urine Bacteria None Seen /hpf (None Seen); Urine Blood Negative /uL (Negative); Urine Clarity Clear (Clear); Urine Color Light-Yellow (Yellow); Urine Mucus FEW (None Seen); Urine Protein, UAD Negative (Negative); Urine Specific Gravity 1.018 (1.001-1.035); Urine Squamous Epithelial Cell FEW /hpf (<5); Urine Urobilinogen Normal (Negative); Urine WBC 2 /HPF (0-3); Urine pH 5.5 (5.0-9.0)
[2025-02-24 12:16] LABS: Amphetamine Screen, Urine Neg (NEGATIVE); Barbiturate Scree,Urine Neg (NEGATIVE); Benzodiazephine Screen, Urine Neg (NEGATIVE); Cannabinoid Screen, Urine Neg (NEGATIVE); Cocaine Screen, Urine Neg (NEGATIVE); Opiate Scree,Urine Neg (NEGATIVE); Phencyclidine Screen, Urine Neg (NEGATIVE)
--- NOTE | 2025-02-24 19:11 | DVHINCON2 ---
Date of service: February 24, [address] Ruelas Reason for Consultation GI bleed History of Present Illness The patient is a 74-year-old male with a past medical history significant for diabetes, Parkinson's disease, hypertension, chronic kidney disease, history of blood clots on chronic anticoagulation, admitted with a one day history of abdominal pain and GI bleeding. Patient is states that he had hematuria as well as bright red blood per rectum. Patient denies prior history of GI bleeding. He states that the pain was diffuse in the lower abdomen. He is pain-free currently and he is currently NPO. Denies any recent history of colonoscopy although he may have had one more than 10 years ago at an outside facility. Patient denies any nausea or vomiting. GI consultation was obtained for evaluation. Imaging studies show enteritis. Past Medical History As per HPI Past Surgical History History of hip replacement Family History: Patient reports no known family medical history. Family History No known gastrointestinal diseases or malignancies Social History Denies alcohol or drug abuse Allergies: Coded Allergies: NO KNOWN ALLERGIES (Unverified , 02/24/25) Home Meds Patient states that his will bring his medication list tomorrow. Current Medications Current Medications Medications (Trade) Dose Ordered Sig/Reese Route PRN Reason Start Time Stop Time Status Last Admin Acetaminophen (Tylenol Tablet) 650 mg Q6HP PRN PO PAIN SCALE 1-3 OR TEMP>100.4 02/24/25 10:00 Ondansetron HCl (Zofran) 4 mg Q4HP PRN IV NAUSEA / VOMITING 02/24/25 10:00 Pantoprazole Sodium (Protonix) 40 mg BID IV 02/24/25 22:00 Review of Systems General: No significant weight changes No fevers or chills Heart: No chest pain history of cardiac disease or palpitations PULM: No cough wheeze or shortness of breath Neuro: No stroke or seizure, he does have Parkinson's disease Renal: History of hematuria and history of chronic kidney disease Endo: History of diabetes heme: GI bleed a HPI no history of malignancy History of blood clots GI: See HPI Vital Signs Vital Signs Date Time Temp Pulse Resp B/P (MAP) Pulse Ox O2 Delivery O2 Flow Rate FiO2 02/24/25 16:42 97.5 75 18 130/63 (85) 95 97.5 02/24/25 08:00 Room Air* 0 21 Physical Exam General: Alert and oriented elderly male HEENT: NC/AT EOMI PERRLA O/P clear no JVD Heart: Regular rate and rhythm , no murmurs rubs or gallops PULM: Clear to auscultation bilaterally anterior Abdomen: Soft nontender nondistended normoactive bowel sounds Extremity: No clubbing cyanosis or edema Neuro: Tremor, otherwise cranial nerves grossly intact moves all four extremity Skin: No rashes bruises or pruritus Labs/Diagnostic Data Labs Test 02/24/25 13:01 02/24/25 11:33 02/24/25 10:28 02/24/25 09:50 Range/Units Lactic Acid Level 2.3 *H 0.4-2.0 mmol/L Urine Color Light-yellow Yellow Urine Clarity Clear Clear Urine pH 5.5 5.0-9.0 Urine Specific [place] 1.018 1.001-1.035 Urine Protein Negative Negative Urine Ketones Negative Negative Urine Blood Negative Negative /uL Urine Nitrite Negative Negative Urine Bilirubin Negative Negative Urine Urobilinogen Normal Negative mg/dL Urine Leukocyte Esterase Negative Negative /uL Urine RBC 1 0 - 3 /hpf Urine Microscopic WBC 2 0-3 /HPF Urine Squamous Epithelial Cells Few <5 /hpf Urine Bacteria None seen None Seen /hpf Urine Mucus Few None Seen Urine Glucose Normal Normal mg/dL Urine Opiates Screen Neg NEGATIVE Urine Fentanyl Screen Neg NEGATIVE Urine Barbiturates Screen Neg NEGATIVE Urine Phencyclidine Screen Neg NEGATIVE Urine Amphetamines Screen Neg NEGATIVE Urine Benzodiazepines Screen Neg NEGATIVE Urine Cocaine Screen Neg NEGATIVE Urine Cannabinoids Screen Neg NEGATIVE Hemoglobin 15.6 13.5-17.5 g/dL Hematocrit 46.9 41.0-53.0 % Troponin I High Sensitivity 5 </=54 ng/L Stool Occult Blood Positive Negative Stool Occult Blood Sample #3 Negative Test 02/24/25 06:30 Range/Units White Blood Count 17.6 H 4.4-10.8 10^3/uL Red Blood Count 5.29 4.5-5.90 10^6/uL Mean Corpuscular Volume 90.1 80.0-100.0 fL Mean Corpuscular Hemoglobin 29.5 28.0-32.0 pg Mean Corpuscular Hemoglobin Concent 32.7 32.0-36.0 g/dL Red Cell Distribution Width 17.2 H 11.8-14.3 % Platelet Count 259 140-450 10^3/uL Mean Platelet Volume 8.8 6.9-10.8 fL Neutrophils (%) (Auto) 86.6 H 37.0-80.0 % Lymphocytes (%) (Auto) 6.8 L 10.0-50.0 % Monocytes (%) (Auto) 6.0 0.0-12.0 % Eosinophils (%) (Auto) 0.2 0.0-7.0 % Basophils (%) (Auto) 0.4 0.0-2.0 % Neutrophils # (Auto) 15.2 H 1.6-8.6 10 ^3/uL Lymphocytes # (Auto) 1.2 0.4-5.4 10 ^3/uL Monocytes # (Auto) 1.1 0-1.3 10 ^3/uL Eosinophils # (Auto) 0 0-0.8 10 ^3/uL Basophils # (Auto) 0.1 0-0.2 10 ^3/uL Nucleated Red Blood Cells 0.3 % Prothrombin Time 23.2 H 9.3-11.8 sec Prothrombin Time INR 2.39 H 0.9-1.15 Activated Partial Thromboplast Time 37.7 H 24.5-34.5 SEC Sodium Level 138 136-145 mmol/L Potassium Level 5.5 H 3.5-5.1 mmol/L Chloride Level 108 H 98-107 mmol/L Carbon Dioxide Level 21 20-31 mmol/L Anion Gap 9 5-15 Blood Urea Nitrogen 23 9-23 mg/dL Creatinine 1.64 H 0.700-1.30 mg/dL Glomerular Filtration Rate Calc 43 >90 mL/min BUN/Creatinine Ratio 14.0 10.0-20.0 Serum Glucose 173 H 74-106 mg/dL Hemoglobin A1c 6.1 H <5.7 % A1C Calcium Level 9.2 8.7-10.4 mg/dL Total Bilirubin 0.8 0.2-1.0 mg/dL Aspartate Amino Transferase (AST) 97 H 13-40 U/L Alanine Aminotransferase (ALT) 45 H 7-40 U/L Alkaline Phosphatase 96 46-116 U/L Total Protein 7.6 5.7-8.2 g/dL Albumin 4.2 3.2-4.8 g/dL Triglycerides Level 115 < 150 mg/dL Cholesterol Level 106 < 200 mg/dL LDL Cholesterol 57 < 100 mg/dL HDL Cholesterol 31 L 40-59 mg/dL Vitamin D 25-Hydroxy 50.3 30.0-100 ng/mL Folic Acid 9.08 >5.38 ng/mL Thyroid Stimulating Hormone (TSH) 3.68 0.55-4.78 uIU/mL IMPRESSION: 1. Abnormal small bowel wall thickening with engorgement of the mesenteric vasculature suggestive of severe enteritis. This may be infectious, inflammatory or vascular in etiology. No bowel obstruction. No free fluid in the abdomen or pelvis. 2. Gallstones. 3. Hepatomegaly and hepatic steatosis. 4. Colonic diverticulosis without acute diverticulitis. Assessment 1. Abdominal pain 2. GI bleeding 3. History of anticoagulant UC 4. Leukocytosis 5. Transaminitis 6. Lactic acidosis 7. Hematuria GI bleed may be secondary to enteritis versus hemorrhoids versus ischemia versus other. Patient's symptoms have improved. Patient is on anticoagulation. His last colonoscopy was perhaps more than 10 years ago. Problems(with codes): (1) Diverticulosis (2) Enteritis (3) GI bleed (4) Bleeding on Coumadin Plan/Recommendation 1. Hold anticoagulation for now 2. We will obtain medication list from the patient's tomorrow 3. Follow H&H 4. Antibiotics 5. Consider further workup if the patient's symptoms persist or worsen. Patient possibly has gastroenteritis however ischemic etiology is also in the differential given the patient's comorbidities and history of clotting disorder 6. Consider colonoscopy on Thursday 7. Clear liquid diet Plan discussed with: Patient JOSE GRANDE MD February 24, 2025 19:11
[2025-02-24] MEDS: PANTOPRAZOLE 40 MG/10 ML VIAL INJ IV SCH (21:28)
[2025-02-25] VITALS (7 sets, daily range): BP systolic 109–147; BP diastolic 58–85; PULSE 54–86; RESP 17–20; TEMP 96.1–98; O2SAT 95–96
--- NOTE | 2025-02-25 10:39 | PRN ---
Misceleneous Note Note Note February 25, 2025 Subjective: Patient's is at bedside. Patient was taking Coumadin which has been discontinued at this moment. INR was elevated yesterday at 2.39. Patient denies any significant bleeding or abdominal pain Current Medications Medications (Trade) Dose Ordered Sig/Reese Route Start Time Stop Time Status Last Admin Dose Admin Acetaminophen (Tylenol Tablet) 650 mg Q6HP PRN PO 02/24/25 10:00 Ondansetron HCl (Zofran) 4 mg Q4HP PRN IV 02/24/25 10:00 Pantoprazole Sodium (Protonix) 40 mg BID IV 02/24/25 22:00 02/25/25 09:21 40 MG Objective: Vital Signs Date Time Temp Pulse Resp B/P (MAP) Pulse Ox O2 Delivery O2 Flow Rate FiO2 02/25/25 09:00 96.1 64 18 147/67 (93) 95 96.1 02/24/25 20:00 Room Air* 0 21 Alert and oriented x4 NC/AT EOMI PERRLA O/P clear Regular rate and rhythm Soft nontender nondistended No clubbing cyanosis or edema Laboratory Results 02/25/25 10:31: 02/24/25 13:01: Lactic Acid Level 2.3 02/24/25 11:33: Urine Color Light-yellow, Urine Clarity Clear, Urine pH 5.5, Urine Specific [place] 1.018, Urine Protein Negative, Urine Ketones Negative, Urine Blood Negative, Urine Nitrite Negative, Urine Bilirubin Negative, Urine Urobilinogen Normal, Urine Leukocyte Esterase Negative, Urine RBC 1, Urine Microscopic WBC 2, Urine Squamous Epithelial Cells Few, Urine Bacteria None seen, Urine Mucus Few, Urine Glucose Normal, Urine Opiates Screen Neg, Urine Fentanyl Screen Neg, Urine Barbiturates Screen Neg, Urine Phencyclidine Screen Neg, Urine Amphetamines Screen Neg, Urine Benzodiazepines Screen Neg, Urine Cocaine Screen Neg, Urine Cannabinoids Screen Neg 02/24/25 10:28: Hemoglobin 15.6, Hematocrit 46.9, Troponin I High Sensitivity 5 02/24/25 09:50: Stool Occult Blood Positive, Stool Occult Blood Sample #3 02/24/25 06:30: White Blood Count 17.6, Red Blood Count 5.29, Mean Corpuscular Volume 90.1, Mean Corpuscular Hemoglobin 29.5, Mean Corpuscular Hemoglobin Concent 32.7, Red Cell Distribution Width 17.2, Platelet Count 259, Mean Platelet Volume 8.8, Neutrophils (%) (Auto) 86.6, Lymphocytes (%) (Auto) 6.8, Monocytes (%) (Auto) 6.0, Eosinophils (%) (Auto) 0.2, Basophils (%) (Auto) 0.4, Neutrophils # (Auto) 15.2, Lymphocytes # (Auto) 1.2, Monocytes # (Auto) 1.1, Eosinophils # (Auto) 0, Basophils # (Auto) 0.1, Nucleated Red Blood Cells 0.3, Activated Partial Thromboplast Time 37.7, Sodium Level 138, Potassium Level 5.5, Chloride Level 108, Carbon Dioxide Level 21, Anion Gap 9, Blood Urea Nitrogen 23, Creatinine 1.64, Glomerular Filtration Rate Calc 43, BUN/Creatinine Ratio 14.0, Serum Glucose 173, Hemoglobin A1c 6.1, Calcium Level 9.2, Total Bilirubin 0.8, Aspartate Amino Transferase (AST) 97, Alanine Aminotransferase (ALT) 45, Alkaline Phosphatase 96, Total Protein 7.6, Albumin 4.2, Triglycerides Level 115, Cholesterol Level 106, LDL Cholesterol 57, HDL Cholesterol 31, Vitamin D 25-Hydroxy 50.3, Folic Acid 9.08, Thyroid Stimulating Hormone (TSH) 3.68 Impression: 1. Enteritis 2. Abdomin 3. Hematuria 4. Hematochezia 5. History of anticoagulant use Recommendations: 1. Follow H&H 2. Continue to hold Coumadin 3. Check PT INR today 4. We will schedule for colonoscopy once INR is less than 1.5 5. Continue current medication JOSE GRANDE MD February 25, 2025 10:39
[2025-02-25 10:56] LABS: INR 2.23 (0.9-1.15); Prothrombin Time 21.8 sec (9.3-11.8)
--- NOTE | 2025-02-25 11:01 | DVHPN2 ---
Reviewed: Care Plan, H&P Changes from previous H/P or p: No Changes General: Per HPI Eyes: No Pain, No Vision change, No Conjunctivae inflammation, No Eyelid inflammation, No Other, No Redness ENT: No Ear pain, No Ear discharge, No Nose pain, No Nose discharge, No Nose congestion, No Mouth pain, No Mouth swelling, No Throat pain, No Throat swelling, No Other Cardiovascular: No Chest Pain, No Palpitations, No Orthopnea, No Paroxysmal Noc. Dyspnea, No Edema, No Lt Headedness, No Other Respiratory: No Cough, No Dry, No Shortness of breath, No SOB with excertion, No Wheezing, No Hemoptysis, No Pleuritic Pain, No Sputum, No Other Gastrointestinal: Nausea, Vomiting, Abdominal Pain; No Diarrhea, No Constipation, No Melena, No Hematochezia, No Other Genitourinary: No Dysuria, No Frequency, No Incontinence; Hematuria; No Retention, No Other Musculoskeletal: No other, No neck pain, No shoulder pain, No arm pain, No back pain, No hand pain, No leg pain, No foot pain Skin: No Rash, No Lesions, No Jaundice, No Bruising, No Other Objective Vitals Vital Signs Date Time Temp Pulse Resp B/P (MAP) Pulse Ox O2 Delivery O2 Flow Rate FiO2 02/25/25 09:00 96.1 64 18 147/67 (93) 95 96.1 02/24/25 20:00 Room Air* 0 21 Intake/Output Intake and Output 02/25/25 07:00 Intake Total 1550 ml Output Total 500 ml Balance 1050 ml Intake Oral 400 ml IV Total 1150 ml Output Urine Total 500 ml # Voids 3 # Bowel Movements 1 Medications Current Medications Medications Dose Ordered Sig/Reese Route Start Time Stop Time Status Last Admin Dose Admin Acetaminophen 650 mg Q6HP PRN PO 02/24/25 10:00 Ondansetron HCl 4 mg Q4HP PRN IV 02/24/25 10:00 Pantoprazole Sodium 40 mg BID IV 02/24/25 22:00 02/25/25 09:21 40 MG Laboratory Results Laboratory Tests 02/24/25 06:30 02/24/25 10:28 Coagulation Test 02/25/25 10:31 Prothrombin Time 21.8 sec (9.3-11.8) H Prothrombin Time INR 2.23 (0.9-1.15) H Urinalysis Test 02/24/25 11:33 Urine Color Light-yellow (Yellow) Urine Clarity Clear (Clear) Urine pH 5.5 (5.0-9.0) Urine Specific [place] 1.018 (1.001-1.035) Urine Protein Negative (Negative) Urine Ketones Negative (Negative) Urine Blood Negative /uL (Negative) Urine Nitrite Negative (Negative) Urine Bilirubin Negative (Negative) Urine Urobilinogen Normal mg/dL (Negative) Urine Leukocyte Esterase Negative /uL (Negative) Urine RBC 1 /hpf (0 - 3) Urine Microscopic WBC 2 /HPF (0-3) Urine Squamous Epithelial Cells Few /hpf (<5) Urine Bacteria None seen /hpf (None Seen) Urine Mucus Few (None Seen) Urine Glucose Normal mg/dL (Normal) Microbiology Microbiology Date/Time Source Procedure Growth Status 02/24/25 11:39 Voided Urine Urine Culture - Preliminary Resulted Assessment/Plan Assessment/Plan This is a 74-year-old male with past medical history of hypertension, type 2 diabetes mellitus, gout, Parkinson, DVT x3, CKD who presented to the ED via EMS with chief complaint of rectal bleeding. Per EMS patient into the restroom this morning experiencing abdominal pain and was found pale in the restroom and there was blood in the toilet with no stool. Patient also had a syncopal event with an episode of nausea and vomiting at the scene. When asked further details to the patient, he reports that he started urinating blood since yesterday and this morning he went to the toilet urinating again and was seen dark reddish urine color. Patient thinks that he was bleeding from the pineal area and not from the rectal area. On my examination, I perform rectal exam with the nurse at bedside and send specimen for stool occult blood testing to clarify the etiology. Patient is currently complaining of mild periumbilical abdominal tenderness but otherwise physical exam is unremarkable. CT of the abdomen was performed showing severe enteritis with gallstones and hepatomegaly with hepatic steatosis. We started the patient on IV metronidazole and ceftriaxone as well as fluid resuscitation with 1 L of normal saline at this time. CBC showed a WBC of 17.6, hemoglobin of 15.6, potassium was 5.5, creatinine 1.64 and BUN 23. Mid the patient for further assessment and management. Acute abdominal tenderness likely due to severe enteritis associated with possible GI bleed Acute hematuria, patient is currently taking warfarin due to previous DVTs Primary hypertension Type 2 diabetes CKD Previous history of DVTs, on Coumadin Parkinson disease Gout Plan -rectal exam performed and specimen sent for stool occult blood test -start IV metronidazole -start IV ceftriaxone -IV fluid resuscitation 1 L of normal saline -monitor hemoglobin and hematocrit closely -monitor blood glucose and start sliding scale insulin -monitor kidney function -Consult GI and urology 02/25/2025 INR is still high, waiting for INR to come down, then possible colonoscopy Scoping by GI once agreeable/feasible Plan discussed with: Patient Date of Service: February 25, 2025 Billing Provider: ROSALIO PARKER DO Common Visit Codes: [id number] INP/OBS CARE(HIGH) ROSALIO PARKER DO February 25, 2025 11:01
[2025-02-26] VITALS (7 sets, daily range): BP systolic 136–165; BP diastolic 75–90; PULSE 60–98; RESP 17–19; TEMP 96.8–98.5; O2SAT 93–96
--- NOTE | 2025-02-26 08:56 | PRN ---
Misceleneous Note Note Note February 26, 2025 Subjective: Patient is tolerating a diet, has dark stools but denies any red blood, denies any significant abdominal pain, denies hematuria Current Medications Medications (Trade) Dose Ordered Sig/Reese Route Start Time Stop Time Status Last Admin Dose Admin Acetaminophen (Tylenol Tablet) 650 mg Q6HP PRN PO 02/24/25 10:00 Ondansetron HCl (Zofran) 4 mg Q4HP PRN IV 02/24/25 10:00 Pantoprazole Sodium (Protonix) 40 mg BID IV 02/24/25 22:00 02/25/25 22:13 Vital Signs Date Time Temp Pulse Resp B/P (MAP) Pulse Ox O2 Delivery O2 Flow Rate FiO2 02/26/25 05:17 98.1 70 18 151/82 (105) 95 98.1 02/25/25 20:00 Room Air* 0 21 Alert and oriented x4 NC/AT EOMI PERRLA O/P clear Regular rate and rhythm Soft nontender nondistended normoactive bowel sounds No clubbing cyanosis edema Cranial nerves gr intact moves all four extremities CBC and INR from today are pending Impression: 1. Enteritis 2. GI bleed 3. History of Coumadin use 4. Hematuria Recommendations: 1. Follow up with CBC and PT 2. Consider colonoscopy if the hemoglobin decreases 3. We will be signing off to Dr. Gardner 4. If patient is stable consider outpatient follow up Continue hold Coumadin for now but however may restart if there is no signs of bleeding JOSE GRANDE MD Feb 26, 2025 08:56
[2025-02-26 09:07] LABS: Basophils # (auto) 0.1 10 ^3/uL (0-0.2); Eosinophils # (auto) 0.2 10 ^3/uL (0-0.8); Eosinophils % (auto) 1.9 % (0.0-7.0); Hematocrit 43.5 % (41.0-53.0); Hemoglobin 14.4 g/dL (13.5-17.5); Lymphocytes # (auto) 2.2 10 ^3/uL (0.4-5.4); Lymphocytes % (auto) 23.1 % (10.0-50.0); Mean Corpuscular Hemoglobin 29.6 pg (28.0-32.0); Mean Corpuscular Hgb Conc. 33.1 g/dL (32.0-36.0); Mean Corpuscular Volume 89.3 fL (80.0-100.0); Monocytes # (auto) 0.5 10 ^3/uL (0-1.3); Monocytes % (auto) 5.2 % (0.0-12.0); Neutrophils # (auto) 6.6 10 ^3/uL (1.6-8.6); Neutrophils % (auto) 68.8 % (37.0-80.0); Nucleated Red Blood Cells % 0.2 %; Platelet Count (auto) 202 10^3/uL (140-450); Red Blood Cells 4.87 10^6/uL (4.5-5.90); Red Cell Distribution Width 16.9 % (11.8-14.3); White Blood Cell 9.6 10^3/uL (4.4-10.8)
[2025-02-26 09:24] LABS: INR 1.73 (0.9-1.15); Prothrombin Time 17.4 sec (9.3-11.8)
--- NOTE | 2025-02-26 09:49 | DVHPN2 ---
Reviewed: Care Plan, H&P Changes from previous H/P or p: No Changes General: Per HPI Eyes: No Pain, No Vision change, No Conjunctivae inflammation, No Eyelid inflammation, No Other, No Redness ENT: No Ear pain, No Ear discharge, No Nose pain, No Nose discharge, No Nose congestion, No Mouth pain, No Mouth swelling, No Throat pain, No Throat swelling, No Other Cardiovascular: No Chest Pain, No Palpitations, No Orthopnea, No Paroxysmal Noc. Dyspnea, No Edema, No Lt Headedness, No Other Respiratory: No Cough, No Dry, No Shortness of breath, No SOB with excertion, No Wheezing, No Hemoptysis, No Pleuritic Pain, No Sputum, No Other Gastrointestinal: Nausea, Vomiting, Abdominal Pain; No Diarrhea, No Constipation, No Melena, No Hematochezia, No Other Genitourinary: No Dysuria, No Frequency, No Incontinence; Hematuria; No Retention, No Other Musculoskeletal: No other, No neck pain, No shoulder pain, No arm pain, No back pain, No hand pain, No leg pain, No foot pain Skin: No Rash, No Lesions, No Jaundice, No Bruising, No Other Objective Vitals Vital Signs Date Time Temp Pulse Resp B/P (MAP) Pulse Ox O2 Delivery O2 Flow Rate FiO2 02/26/25 09:05 97.9 68 18 151/90 (110) 95 97.9 02/26/25 08:00 Room Air* 0 21 Intake/Output Intake and Output 02/26/25 07:00 Intake Total 1200 ml Balance 1200 ml Intake Oral 1200 ml # Voids 6 # Bowel Movements 4 Medications Current Medications Medications Dose Ordered Sig/Reese Route Start Time Stop Time Status Last Admin Dose Admin Acetaminophen 650 mg Q6HP PRN PO 02/24/25 10:00 Ondansetron HCl 4 mg Q4HP PRN IV 02/24/25 10:00 Pantoprazole Sodium 40 mg BID IV 02/24/25 22:00 02/25/25 22:13 40 MG Laboratory Results Laboratory Tests 02/24/25 06:30 02/26/25 08:33 Coagulation Test 02/25/25 10:31 02/26/25 08:33 Prothrombin Time 21.8 sec (9.3-11.8) H 17.4 sec (9.3-11.8) H Prothrombin Time INR 2.23 (0.9-1.15) H 1.73 (0.9-1.15) H Urinalysis Test 02/24/25 11:33 Urine Color Light-yellow (Yellow) Urine Clarity Clear (Clear) Urine pH 5.5 (5.0-9.0) Urine Specific [place] 1.018 (1.001-1.035) Urine Protein Negative (Negative) Urine Ketones Negative (Negative) Urine Blood Negative /uL (Negative) Urine Nitrite Negative (Negative) Urine Bilirubin Negative (Negative) Urine Urobilinogen Normal mg/dL (Negative) Urine Leukocyte Esterase Negative /uL (Negative) Urine RBC 1 /hpf (0 - 3) Urine Microscopic WBC 2 /HPF (0-3) Urine Squamous Epithelial Cells Few /hpf (<5) Urine Bacteria None seen /hpf (None Seen) Urine Mucus Few (None Seen) Urine Glucose Normal mg/dL (Normal) Microbiology Microbiology Date/Time Source Procedure Growth Status 02/24/25 11:39 Voided Urine Urine Culture - Preliminary Resulted Assessment/Plan Assessment/Plan This is a 74-year-old male with past medical history of hypertension, type 2 diabetes mellitus, gout, Parkinson, DVT x3, CKD who presented to the ED via EMS with chief complaint of rectal bleeding. Per EMS patient into the restroom this morning experiencing abdominal pain and was found pale in the restroom and there was blood in the toilet with no stool. Patient also had a syncopal event with an episode of nausea and vomiting at the scene. When asked further details to the patient, he reports that he started urinating blood since yesterday and this morning he went to the toilet urinating again and was seen dark reddish urine color. Patient thinks that he was bleeding from the pineal area and not from the rectal area. On my examination, I perform rectal exam with the nurse at bedside and send specimen for stool occult blood testing to clarify the etiology. Patient is currently complaining of mild periumbilical abdominal tenderness but otherwise physical exam is unremarkable. CT of the abdomen was performed showing severe enteritis with gallstones and hepatomegaly with hepatic steatosis. We started the patient on IV metronidazole and ceftriaxone as well as fluid resuscitation with 1 L of normal saline at this time. CBC showed a WBC of 17.6, hemoglobin of 15.6, potassium was 5.5, creatinine 1.64 and BUN 23. Mid the patient for further assessment and management. Acute abdominal tenderness likely due to severe enteritis associated with possible GI bleed Acute hematuria, patient is currently taking warfarin due to previous DVTs Primary hypertension Type 2 diabetes CKD Previous history of DVTs, on Coumadin Parkinson disease Gout Plan -rectal exam performed and specimen sent for stool occult blood test -start IV metronidazole -start IV ceftriaxone -IV fluid resuscitation 1 L of normal saline -monitor hemoglobin and hematocrit closely -monitor blood glucose and start sliding scale insulin -monitor kidney function -Consult GI and urology 02/25/2025 INR is still high, waiting for INR to come down, then possible colonoscopy Scoping by GI once agreeable/feasible 02/26/2025 pending evaluation for coloscopy by GI Plan discussed with: Patient Date of Service: Feb 26, 2025 Billing Provider: ROSALIO PARKER DO Common Visit Codes: [id number] INP/OBS CARE(HIGH) ROSALIO PARKER DO Feb 26, 2025 09:49
[2025-02-26] MEDS ORDERED: LISI20TA56 PO (16:47)
[2025-02-26] MEDS ORDERED: NIFE1TAB36 PO (17:05)
--- NOTE | 2025-02-26 17:07 | DVHDS2 ---
Discharge Summary Date of Admission February 24, 2025 at 09:59 Date of Discharge: Feb 26, 2025 Labs/Diagnostic Data: Laboratory Results Test 02/26/25 08:33 02/24/25 13:01 02/24/25 11:33 02/24/25 10:28 White Blood Count 9.6 10^3/uL (4.4-10.8) Red Blood Count 4.87 10^6/uL (4.5-5.90) Hemoglobin 14.4 g/dL (13.5-17.5) Hematocrit 43.5 % (41.0-53.0) Mean Corpuscular Volume 89.3 fL (80.0-100.0) Mean Corpuscular Hemoglobin 29.6 pg (28.0-32.0) Mean Corpuscular Hemoglobin Concent 33.1 g/dL (32.0-36.0) Red Cell Distribution Width 16.9 % (11.8-14.3) Platelet Count 202 10^3/uL (140-450) Mean Platelet Volume 8.5 fL (6.9-10.8) Neutrophils (%) (Auto) 68.8 % (37.0-80.0) Lymphocytes (%) (Auto) 23.1 % (10.0-50.0) Monocytes (%) (Auto) 5.2 % (0.0-12.0) Eosinophils (%) (Auto) 1.9 % (0.0-7.0) Basophils (%) (Auto) 1.0 % (0.0-2.0) Neutrophils # (Auto) 6.6 10 ^3/uL (1.6-8.6) Lymphocytes # (Auto) 2.2 10 ^3/uL (0.4-5.4) Monocytes # (Auto) 0.5 10 ^3/uL (0-1.3) Eosinophils # (Auto) 0.2 10 ^3/uL (0-0.8) Basophils # (Auto) 0.1 10 ^3/uL (0-0.2) Nucleated Red Blood Cells 0.2 % Prothrombin Time 17.4 sec (9.3-11.8) Prothrombin Time INR 1.73 (0.9-1.15) Lactic Acid Level 2.3 mmol/L (0.4-2.0) Urine Color Light-yellow (Yellow) Urine Clarity Clear (Clear) Urine pH 5.5 (5.0-9.0) Urine Specific [place] 1.018 (1.001-1.035) Urine Protein Negative (Negative) Urine Ketones Negative (Negative) Urine Blood Negative /uL (Negative) Urine Nitrite Negative (Negative) Urine Bilirubin Negative (Negative) Urine Urobilinogen Normal mg/dL (Negative) Urine Leukocyte Esterase Negative /uL (Negative) Urine RBC 1 /hpf (0 - 3) Urine Microscopic WBC 2 /HPF (0-3) Urine Squamous Epithelial Cells Few /hpf (<5) Urine Bacteria None seen /hpf (None Seen) Urine Mucus Few (None Seen) Urine Glucose Normal mg/dL (Normal) Urine Opiates Screen Neg (NEGATIVE) Urine Fentanyl Screen Neg (NEGATIVE) Urine Barbiturates Screen Neg (NEGATIVE) Urine Phencyclidine Screen Neg (NEGATIVE) Urine Amphetamines Screen Neg (NEGATIVE) Urine Benzodiazepines Screen Neg (NEGATIVE) Urine Cocaine Screen Neg (NEGATIVE) Urine Cannabinoids Screen Neg (NEGATIVE) Troponin I High Sensitivity 5 ng/L (</=54) Test 02/24/25 09:50 02/24/25 06:30 Stool Occult Blood Positive (Negative) Stool Occult Blood Sample #3 (Negative) Activated Partial Thromboplast Time 37.7 SEC (24.5-34.5) Sodium Level 138 mmol/L (136-145) Potassium Level 5.5 mmol/L (3.5-5.1) Chloride Level 108 mmol/L (98-107) Carbon Dioxide Level 21 mmol/L (20-31) Anion Gap 9 (5-15) Blood Urea Nitrogen 23 mg/dL (9-23) Creatinine 1.64 mg/dL (0.700-1.30) Glomerular Filtration Rate Calc 43 mL/min (>90) BUN/Creatinine Ratio 14.0 (10.0-20.0) Serum Glucose 173 mg/dL (74-106) Hemoglobin A1c 6.1 % A1C (<5.7) Calcium Level 9.2 mg/dL (8.7-10.4) Total Bilirubin 0.8 mg/dL (0.2-1.0) Aspartate Amino Transferase (AST) 97 U/L (13-40) Alanine Aminotransferase (ALT) 45 U/L (7-40) Alkaline Phosphatase 96 U/L (46-116) Total Protein 7.6 g/dL (5.7-8.2) Albumin 4.2 g/dL (3.2-4.8) Triglycerides Level 115 mg/dL (< 150) Cholesterol Level 106 mg/dL (< 200) LDL Cholesterol 57 mg/dL (< 100) HDL Cholesterol 31 mg/dL (40-59) Vitamin D 25-Hydroxy 50.3 ng/mL (30.0-100) Folic Acid 9.08 ng/mL (>5.38) Thyroid Stimulating Hormone (TSH) 3.68 uIU/mL (0.55-4.78) Other Laboratory Tests 02/26/25 08:33 02/24/25 06:30 Brief Hx & Hospital Course: This is a 74-year-old male with past medical history of hypertension, type 2 diabetes mellitus, gout, Parkinson, DVT x3, CKD who presented to the ED via EMS with chief complaint of rectal bleeding. Per EMS patient into the restroom this morning experiencing abdominal pain and was found pale in the restroom and there was blood in the toilet with no stool. Patient also had a syncopal event with an episode of nausea and vomiting at the scene. When asked further details to the patient, he reports that he started urinating blood since yesterday and this morning he went to the toilet urinating again and was seen dark reddish urine color. Patient thinks that he was bleeding from the pineal area and not from the rectal area. On my examination, I perform rectal exam with the nurse at bedside and send specimen for stool occult blood testing to clarify the etiology. Patient is currently complaining of mild periumbilical abdominal tenderness but otherwise physical exam is unremarkable. CT of the abdomen was performed showing severe enteritis with gallstones and hepatomegaly with hepatic steatosis. We started the patient on IV metronidazole and ceftriaxone as well as fluid resuscitation with 1 L of normal saline at this time. CBC showed a WBC of 17.6, hemoglobin of 15.6, potassium was 5.5, creatinine 1.64 and BUN 23. Mid the patient for further assessment and management. Acute abdominal tenderness likely due to severe enteritis associated with possible GI bleed Acute hematuria, patient is currently taking warfarin due to previous DVTs Primary hypertension Type 2 diabetes CKD Previous history of DVTs, on Coumadin Parkinson disease Gout Plan -rectal exam performed and specimen sent for stool occult blood test -start IV metronidazole -start IV ceftriaxone -IV fluid resuscitation 1 L of normal saline -monitor hemoglobin and hematocrit closely -monitor blood glucose and start sliding scale insulin -monitor kidney function -Consult GI and urology 02/25/2025 INR is still high, waiting for INR to come down, then possible colonoscopy Scoping by GI once agreeable/feasible 02/26/2025 pending evaluation for coloscopy by GI per GI, ok to d/c Condition at Discharge: Fair Final Diagnosis/Problems List Rectal bleeding Discharge Disposition: Home Discharge Instruct/Medications Diet: Cardiac 2g Na,low cholest Activity: No Restrictions, As Tolerated Discharge Statement: "Patient was advised to return to the ER or call 911 if any headaches, dizziness, shortness of breath, chest pain, abdominal pain, bleeding, fevers, or worsening of medical condition. Patient was counseled about treatment plan, medications, possible side effects, patientverbalized understanding. All questions were answered to the best of my ability. This discharge took greater then 30 minutes in planning, reviewing documentation, counseling the patient, and discussing with other team members." ASSESSMENT ASSESSMENT Assessment Rectal bleeding Date of Service: Feb 26, 2025 Billing Provider: ROSALIO PARKER DO Common Visit Codes: [id number] DISCH DAY >30min ROSALIO PARKER DO Feb 26, 2025 17:07
[2025-02-26] MEDS: NIFEdipine ER 30 MG TAB PO ONE (17:15)
== END 2025-02-26 16:48 | disposition home or self-care (01) | DRG 392 ==
LOC: EDBD 05:36 → ER 05:42 → EDSEX 05:42 → OVERFLOW 09:59 → EAST 15:52 → CENTRAL 02-26 00:02
PROVIDERS: ADMIT Student in an Organized Health Care Education/Training Program; ATTEND Urology
DX: K52.9 Noninfective gastroenteritis and colitis, unspecified (principal); E87.20 Acidosis, unspecified; R31.0 Gross hematuria; I12.9 Hypertensive chronic kidney disease with stage 1 through stage 4 chronic kidney disease, or unspecified chronic kidney disease; N18.9 Chronic kidney disease, unspecified; E11.22 Type 2 diabetes mellitus with diabetic chronic kidney disease; G20.A1 Parkinson's disease without dyskinesia, without mention of fluctuations; K80.20 Calculus of gallbladder without cholecystitis without obstruction; M10.9 Gout, unspecified; N40.1 Benign prostatic hyperplasia with lower urinary tract symptoms; K76.0 Fatty (change of) liver, not elsewhere classified; T45.515A Adverse effect of anticoagulants, initial encounter; Z79.01 Long term (current) use of anticoagulants; Z86.718 Personal history of other venous thrombosis and embolism; Y92.89 Other specified places as the place of occurrence of the external cause
CPT/HCPCS: 36415; 74176; 80053; 80061; 80307; 81001; 82270; 82306; 82746; 83036; 83605; 84443; 84484; 85014; 85018; 85025; 85610; 85730; 86850; 86900; 86901; 87086; 96365; 96375; 99291; G0378; J2470; J3490